=== PATIENT | male | born 1950 | race Caucasian/White ===

== ENCOUNTER 2021-04-10 15:27 | Emergency (ER) | payer MEDICARE, OTHER, SELFPAY ==
[2021-04-10 15:35] VITALS: BP 130/80; PULSE 78; RESP 16; TEMP 37.3; O2SAT 97
[2021-04-10 15:57] LABS: Add Manual Diff / Slide Review NO; Basophils Absolute Auto 100 /uL (0-100); Basophils Percent Auto 0.9 % (0-2); Eosinophils Absolute Auto 100 /uL (0-450); Eosinophils Percent Auto 2.1 % (2-4); Hematocrit 44.9 % (41-53); Hemoglobin 14.9 g/dL (13.5-17.5); Lymphocytes Absolute Auto 2400 /uL (1100-4500); Lymphocytes Percent Auto 40.1 % (25-40); Mean Corpuscular HGB Conc 33.3 % (30-36); Mean Corpuscular Hemoglobin 30.3 PG (26-34); Monocytes Absolute Auto 400 /uL (0-900); Monocytes Percent Auto 6.6 % (3-14); Neutrophils Absolute Auto 3000 /uL (1500-7000); Neutrophils Percent Auto 50.3 % (50-75); Platelet Count 274 X10^3/uL (150-400); Red Blood Cell Count 4.94 X10^6/uL (4.5-5.9); Red Cell Distribution Width 13.3 % (11.6-14.8); White Blood Cell Count 5.9 X10^3/uL (4.5-11.0)
[2021-04-10 16:04] LABS: Alanine Aminotransferase 36 IU/L (<50); Albumin 4.5 g/dL (3.5-5.0); Albumin Globulin Ratio 1.5 (1.0-2.8); Alkaline Phosphatase 66 U/L (38-126); Aspartate Aminotransferase 50 IU/L (17-59); BUN Creatinine Ratio 18.2 (6-22); Bilirubin Total 0.4 mg/dL (0.2-1.3); Blood Urea Nitrogen 14 mg/dL (9-20); Carbon Dioxide 26 mmol/L (22-32); Chloride 105 mmol/L (98-107); Estimated Glomerular Filt Rate > 60.0 mL/min (>60); Glucose 93 mg/dL (80-110); HEMOLYSIS < 15 (0-50); Lipase 34 U/L (23-300); Potassium 3.9 mmol/L (3.4-5.1); Sodium 140 mmol/L (137-145); Total Protein 7.5 g/dL (6.3-8.2)
[2021-04-10 19:38] VITALS: BP 154/89; PULSE 80; RESP 16; O2SAT 99
--- NOTE | 2021-04-10 20:10 | DI.CT.S_ITS ---
PROCEDURE: CT ABDOMEN PELVIS W CON INDICATIONS: Left side anterior abdominal pain, h/o bladder CA TECHNIQUE: After the administration of intravenous contrast, axial sections acquired from the lung bases to the pubic symphysis. Coronal and sagittal reformats were performed. For radiation dose reduction, the following was used: automated exposure control, adjustment of mA and/or kV according to patient size. COMPARISON: None. FINDINGS: Image quality: Excellent. Lung bases: Unremarkable. Heart: No significant findings. ABDOMEN: Liver: Unremarkable. There are several scattered simple appearing water density hepatic cysts. These are small in size. Gallbladder: Appears normal Biliary ducts: Unremarkable. Pancreas: Unremarkable. Spleen: Unremarkable. Adrenal Glands: Unremarkable. Kidneys and Ureters: Unremarkable. Stomach and Bowel: Stomach, small bowel loops, and colon are unremarkable. Peritoneum: No abnormal intraperitoneal fluid. No free air. Ventral Wall: No hernias. Abdominal Nodes: No retroperitoneal or mesenteric adenopathy by size criteria. Vessels: Aorta and inferior vena cava are normal in size. PELVIS: Pelvic Organs: Unremarkable. Bladder: Unremarkable. Pelvic Nodes: No enlarged lymph nodes. Miscellaneous: No hernias are seen. Extensive sigmoid diverticulosis without acute diverticulitis. Bones: Unremarkable. IMPRESSION: No bladder mass is seen. No adenopathy is found. No distant metastatic disease is identified. Scattered small water density simple appearing hepatic cysts. Extensive diverticulosis without acute diverticulitis. History of left side anterior abdominal pain is reported but etiology is not found. Dictated by: Winston Rosales M.D. on 04/10/2021 at 20:54 Approved by: Winston Rosales M.D. on 04/10/2021 at 20:57
--- NOTE | 2021-04-10 20:11 | ED.ABDPAIN ---
HPI - Abdominal Pain General Chief Complaint: Abdominal Pain Stated Complaint: lt sided abd pain, off and on Time Seen by Provider: 04/10/21 19:38 Source: patient Mode of arrival: Ambulatory History of Present Illness HPI narrative: 70-year-old gentleman with a history of bladder cancer 10 years ago visiting from [place] and living on his boat for the last 6 weeks here in [place] presents with left-sided abdominal pain. Notes that it hurts only when he sits and twists. Laying flat and walking are not particularly tender. It does not radiate into his flank groin or scrotum. He notes no change to bowel or bladder habits. He has had no hematuria. He reports no chest pain, orthopnea, dyspnea, palpitations, cough, fevers, vomiting or diarrhea. Review of Systems Review of Systems Narrative: Remainder of complete review of systems is otherwise unremarkable except for that included in the HPI. Patient History Medical History Bladder cancer Social History Smoking Status: Never smoker Smoking Status: Never smoker Exam Narrative Exam Narrative: General: Healthy appearing, in no acute distress. Able to give a complete and coherent history. Well-nourished well-developed HEENT: Moist mucous membranes, normal sclera with reactive pupils, Respiratory: Lungs are clear to auscultation, no wheezing no rales no rhonchi. Full and symmetrical air movement Cardiac: Regular rate and rhythm no murmurs no bruits Abdomen: Soft, nontender, good bowel tones, no flank pain. With rotational movement he has tenderness just lateral to the umbilicus on the left with no palpable defects or abnormalities externally : Normal in circumcised male no inguinal hernias or testicular pain or masses Skin: Warm and dry, no rashes Neurologic: Grossly neurologically intact with no obvious asymmetries or abnormalities Extremities: No trauma, well perfused Psych: Cooperative, appropriate insight and affect Initial Vital Signs Initial Vital Signs: Vital Signs Temperature 99.1 F 04/10/21 15:35 Pulse Rate 78 04/10/21 15:35 Respiratory Rate 16 04/10/21 15:35 Blood Pressure 130/80 04/10/21 15:35 Pulse Oximetry 97 08/17/21 15:35 Course Orders Ordered: ED Orders 04/10/21 15:15 Complete Blood Count AUTO DIFF Stat Comprehensive Metabolic Panel Stat Lipase Stat 04/10/21 20:10 CT abdomen pelvis w con Stat Vital Signs Vital signs: Vital Signs - 8 hr 04/10/21 15:35 Temperature 99.1 F Pulse Rate 78 Respiratory Rate 16 Blood Pressure 130/80 Pulse Oximetry 97 MDM - Abdominal Pain Lab Data Result diagrams: 04/10/21 15:15 04/10/21 15:15 Labs: Lab Results 04/10/21 04/10/21 Range/Units 15:15 15:15 WBC 5.9 (4.5-11.0) X10^3/uL RBC 4.94 (4.5-5.9) X10^6/uL Hgb 14.9 (13.5-17.5) g/dL Hct 44.9 (41-53) % MCV 91.0 (80-100) fL MCH 30.3 (26-34) PG MCHC 33.3 (30-36) % RDW 13.3 (11.6-14.8) % Plt Count 274 (150-400) X10^3/uL Neut % (Auto) 50.3 (50-75) % Lymph % (Auto) 40.1 H (25-40) % [place] % (Auto) 6.6 (3-14) % Eos % (Auto) 2.1 (2-4) % Baso % (Auto) 0.9 (0-2) % Neut # (Auto) 3000 (0705-9365) /uL Lymph # (Auto) 2400 (8342-7266) /uL [place] # (Auto) 400 (0-900) /uL Eos # (Auto) 100 (0-450) /uL Baso # (Auto) 100 (0-100) /uL Sodium 140 (137-145) mmol/L Potassium 3.9 (3.4-5.1) mmol/L Chloride 105 (98-107) mmol/L Carbon Dioxide 26 (22-32) mmol/L BUN 14 (9-20) mg/dL Creatinine 0.77 (0.66-1.25) mg/dL Estimated GFR > 60.0 (>60) mL/min BUN/Creatinine Ratio 18.2 (6-22) Glucose 93 (80-110) mg/dL Calcium 10.0 (8.4-10.2) mg/dL Total Bilirubin 0.4 (0.2-1.3) mg/dL AST 50 (17-59) IU/L ALT 36 (<50) IU/L Alkaline Phosphatase 66 (38-126) U/L Total Protein 7.5 (6.3-8.2) g/dL Albumin 4.5 (3.5-5.0) g/dL Globulin 3.0 (1.7-4.1) g/dL Albumin/Globulin Ratio 1.5 (1.0-2.8) Lipase 34 (23-300) U/L Point of care testing: Urine Dip Bedside Urine Glucose Negative Bedside Urine Bilirubin - Negative Bedside Urine Ketone - Negative Urine Specific [place] 1.030 Bedside Urine Occult Blood - Negative Bedside Urine pH 6.0 Bedside Urine Protein - Negative Bedside Urine Urobilinogen - Negative Bedside Urine Nitrite - Negative Bedside Urine Leukocytes - Negative Esterase MDM Narrative Medical decision making narrative: 70-year-old gentleman with 6 weeks of left-sided abdominal wall pain with no significant findings on physical exam lab work or CT to suggest etiology. No evidence of infection, hernia, shingles, nerve entrapment, masses, abscess, intra-abdominal wall abnormalities or other life-threatening findings. Reassurance is given and patient is safe for home discharge Discharge Plan Departure Patient Disposition: Home Clinical Impression: Abdominal wall pain Instructions: DI for Abdominal Muscle Strain Activity Restrictions/Additional Instructions: Thank you for coming in today I do not have a full explanation for why your having this continued pain on the left side of your abdomen. There does not appear to be any skin infection, hernia palpable on the outside either around her belly button, in the abdominal wall or the inguinal area. There is no suggestion of infection on CT scan. There is no concerns for recurrent bladder cancers or other intra-abdominal complications Your blood work today was very reassuring there is no sign of kidney issues kidney stones or kidney or bladder infection The most likely explanation at this point is some type of musculoskeletal pain. There is no evidence of any life-threatening diagnosis. Using 400 mg of ibuprofen (2 [id number] pills) and 1 Tylenol every 6 hours can be very helpful in controlling pain. If the pain persists I would recommend following up with your primary care physician I wish you the best
[2021-04-10 21:52] VITALS: BP 126/64; PULSE 67; RESP 18; O2SAT 97
== END 2021-04-10 21:53 | disposition home or self-care (01) ==
PROVIDERS: Emergency Medicine; Emergency Provider Emergency Medicine
DX: R10.9 Unspecified abdominal pain (principal)
CPT/HCPCS: 74177; 80053; 81003; 83690; 85025; 99283; 99284

== ENCOUNTER 2021-05-27 11:36 | Emergency (ER) | payer MEDICARE, OTHER, SELFPAY ==
[2021-05-27 11:44] VITALS: BP 121/68; PULSE 78; RESP 18; TEMP 36.2; O2SAT 98; BMI 31.6
[2021-05-27 12:15] LABS: COVID19 -Nasal RAPID Negative (Negative)
--- NOTE | 2021-05-28 07:52 | ED_ITS ---
HPI - Recheck/Abnormal Lab/Rx General Chief Complaint: Recheck/Abnormal Lab/Rx Stated Complaint: Needs COVID, Exposure Time Seen by Provider: 05/27/21 13:09 Source: patient Mode of arrival: Ambulatory Limitations: no limitations History of Present Illness HPI narrative: Patient is a 70-year-old male is wanting COVID test. He was exposed 4 days ago he is asymptomatic Related Data Allergies Allergy/AdvReac Type Severity Reaction Status Date / Time No Known Drug Allergies Allergy Verified 05/27/21 11:44 Review of Systems Review of Systems ROS Unobtainable: All systems reviewed & are unremarkable except as noted in HPI and below Patient History Medical History Bladder cancer Social History Smoking Status: Never smoker Smoking Status: Never smoker Exam Initial Vital Signs Initial Vital Signs: Vital Signs Temperature 97.2 F L 05/27/21 11:44 Pulse Rate 78 05/27/21 11:44 Respiratory Rate 18 05/27/21 11:44 Blood Pressure 121/68 05/27/21 11:44 Pulse Oximetry 98 05/27/21 11:44 GENERAL: Well-appearing, well-nourished and in no acute distress. CARDIOVASCULAR: peripheral pulses in tact, cap refill <2 sec RESPIRATORY: No respiratory distress, speaks in full sentences without difficulty EXTREMITIES: Normal range of motion, no clubbing or edema. Neurovascularly intact NEUROLOGICAL: Cranial nerves II through XII grossly intact. Normal gait and speech. SKIN: Warm, dry, no petechiae, no rashes or lesions. MDM - Recheck/Abnormal Lab/Rx Lab Data Labs: Lab Results 05/27/21 Range/Units 11:43 SARS-CoV-2 (PCR) Negative (Negative) Discharge Plan Departure Patient Disposition: Home Clinical Impression: Close exposure to 2019-nCoV Instructions: COVID-19: Protecting Yourself When You're at High Risk Activity Restrictions/Additional Instructions: At this time he tested negative for COVID. Please continue to self monitor quarantine for 10 days since exposure If you should develop symptoms please be retested There are plenty of out patient testing sites including [facility] and other [facility] Follow-up with her primary care provider in 2-3 days Return to emergency department infusion having new or worsening symptoms
== END 2021-05-27 13:22 | disposition home or self-care (01) ==
PROVIDERS: Emergency Provider Emergency Medicine
DX: Z20.822 Contact with and (suspected) exposure to COVID-19 (principal)
CPT/HCPCS: 87635; 99281; C9803

== ENCOUNTER 2022-12-10 18:38 | Inpatient (IN) | payer MEDICARE, OTHER, SELFPAY ==
[2022-12-10] VITALS (11 sets, daily range): BP systolic 134–144; BP diastolic 70–79; PULSE 71–104; RESP 16–19; TEMP 36.6–36.7; O2SAT 94–100; BMI 31.6
--- NOTE | 2022-12-10 18:49 | DI.RAD.S_ITS ---
PROCEDURE: XR HIP W PEL IF DONE LT 2V INDICATIONS: fall, left hip pain, unable to bear weight TECHNIQUE: AP pelvis with lateral view(s) of the left hip(s). COMPARISON: None. FINDINGS: Bones: Moderately angulated left femoral neck fracture. Soft tissues: The visualized bowel gas pattern is normal. No suspicious soft tissue calcifications. IMPRESSION: Moderately angulated left femoral neck fracture. Dictated by: Yasmani Cullen M.D. on 12/10/2022 at 20:54 Approved by: Yasmani Cullen M.D. on 12/10/2022 at 20:55
[2022-12-10] MEDS: HYDROMORPHONE 0.5 MG INJ IV ×2 (19:25→20:29)
[2022-12-10 19:29] LABS: Add Manual Diff / Slide Review NO; Basophils Absolute Auto 100 /uL (0-100); Basophils Percent Auto 0.6 % (0-2); Eosinophils Absolute Auto 100 /uL (0-450); Eosinophils Percent Auto 1.7 % (2-4); Hematocrit 44.5 % (41-53); Lymphocytes Absolute Auto 3500 /uL (1100-4500); Lymphocytes Percent Auto 43.2 % (25-40); Mean Corpuscular HGB Conc 33.8 % (30-36); Mean Corpuscular Hemoglobin 30.2 PG (26-34); Mean Corpuscular Volume 89.5 fL (80-100); Monocytes Absolute Auto 500 /uL (0-900); Monocytes Percent Auto 5.8 % (3-14); Neutrophils Absolute Auto 3900 /uL (1500-7000); Neutrophils Percent Auto 48.7 % (50-75); Platelet Count 255 X10^3/uL (150-400); Red Blood Cell Count 4.97 X10^6/uL (4.5-5.9)
--- NOTE | 2022-12-10 19:29 | ED.LOWEXIN ---
HPI - Extremity Injury (Lower) General Chief Complaint: Extremity Injury, Lower Stated Complaint: Hip pain, fall Time Seen by Provider: 12/10/22 19:01 History of Present Illness HPI Narrative: Patient is a 72-year-old healthy male who presents today with left hip pain. He is here visiting to help his mother who is getting a pacemaker in 1 week. He slipped and fell in the parking lot landed directly on his left hip unable to stand and bear weight. Denies hitting his head no neck pain no chest pain shortness of breath no dizziness or lightheadedness. He denies numbness tingling. Significant pain whenever he moves however at rest without movement he has no pain. Related Data Allergies Allergy/AdvReac Type Severity Reaction Status Date / Time No Known Drug Allergies Allergy Verified 12/10/22 18:48 Review of Systems Review of Systems ROS Unobtainable: All systems reviewed & are unremarkable except as noted in HPI and below Patient History Medical History Bladder cancer Social History household members: spouse Smoking Status: Never smoker alcohol intake: current Smoking Status: Never smoker Substance Use Type: does not use Exam Initial Vital Signs Initial Vital Signs: Vital Signs Blood Pressure 138/70 12/10/22 18:45 GENERAL: Alert very pleasant 72-year-old male and in [no acute] distress. HEENT: Head atraumatic,EOMI, pupils reactive, face symmetric, [moist] mucous membranes CARDIOVASCULAR: Regular rate and rhythm without murmurs, rubs or gallops. RESPIRATORY: Breath sounds equal bilaterally, no wheezes rales or rhonchi. ABDOMEN: Soft, nontender. Normoactive bowel sounds all 4 quadrants. No guarding or rebound. EXTREMITIES: Normal range of motion, no clubbing or edema. Neurovascularly intact NEUROLOGICAL: Alert and oriented x4.Normal gait and speech. SKIN: Warm, dry, no laceration, no petechiae, no rashes or lesions. Course Orders Ordered: ED Orders 12/10/22 21:10 COVID19 -Nasal RAPID Stat 12/10/22 21:22 Consult to Physician Stat Acetaminophen (Acetaminophen 325 Mg Tablet) 650 mg PO Q6H PRN PRN Reason: Fever/Mild Pain (1-3) Enoxaparin Sodium (Enoxaparin 40 Mg/0.4 Ml Syringe) 40 mg SUBCUT DAILY JUSTO Hydromorphone HCl (Hydromorphone 0.5 Mg Inj) 0.5 mg IV Q2H PRN PRN Reason: Pain, Severe (7-10) Last Admin: 12/11/22 01:54 Dose: 0.5 mg Documented By: Naloxone HCl (Naloxone 0.4 Mg/Ml Vial) 0.2 mg IV Q2MIN PRN PRN Reason: Opiate Reversal Discontinued Medications Hydromorphone HCl (Hydromorphone 0.5 Mg Inj) 0.5 mg IV NOW ONE Stop: 12/10/22 19:09 Last Admin: 12/10/22 19:25 Dose: 0.5 mg Documented By: YADIRA Hydromorphone HCl (Hydromorphone 0.5 Mg Inj) 0.5 mg IV NOW ONE Stop: 12/10/22 20:27 Last Admin: 12/10/22 20:29 Dose: 0.5 mg Documented By: LAYU Vital Signs Vital signs: Vital Signs - 8 hr 12/10/22 18:46 Temperature 97.8 F Pulse Rate 78 Respiratory Rate 16 Blood Pressure 138/70 Pulse Oximetry 99 Oxygen Delivery Method Room Air MDM - Extremity Injury (Lower) Lab Data 12/10/22 19:25 12/11/22 04:40 Labs: Lab Results 12/10/22 12/10/22 12/10/22 Range/Units 19:25 19:25 21:10 WBC 8.0 (4.5-11.0) X10^3/uL RBC 4.97 (4.5-5.9) X10^6/uL Hgb 15.0 (13.5-17.5) g/dL Hct 44.5 (41-53) % MCV 89.5 (80-100) fL MCH 30.2 (26-34) PG MCHC 33.8 (30-36) % RDW 14.0 (11.6-14.8) % Plt Count 255 (150-400) X10^3/uL Neut % (Auto) 48.7 L (50-75) % Lymph % (Auto) 43.2 H (25-40) % [place] % (Auto) 5.8 (3-14) % Eos % (Auto) 1.7 L (2-4) % Baso % (Auto) 0.6 (0-2) % Neut # (Auto) 3900 (6955-5958) /uL Lymph # (Auto) 3500 (6461-3551) /uL [place] # (Auto) 500 (0-900) /uL Eos # (Auto) 100 (0-450) /uL Baso # (Auto) 100 (0-100) /uL Sodium 140 (137-145) mmol/L Potassium 3.6 (3.4-5.1) mmol/L Chloride 103 (98-107) mmol/L Carbon Dioxide 28 (22-32) mmol/L BUN 12 (9-20) mg/dL Creatinine 0.74 (0.66-1.25) mg/dL Estimated GFR > 60 (>60) mL/min BUN/Creatinine Ratio 16.2 (6-22) Glucose 100 (80-110) mg/dL Calcium 9.1 (8.4-10.2) mg/dL Total Bilirubin 0.3 (0.2-1.3) mg/dL AST 29 (17-59) IU/L ALT 23 (<50) IU/L Alkaline Phosphatase 68 (38-126) U/L Total Protein 7.5 (6.3-8.2) g/dL Albumin 4.3 (3.5-5.0) g/dL Globulin 3.2 (1.7-4.1) g/dL Albumin/Globulin Ratio 1.3 (1.0-2.8) SARS-CoV-2 (PCR) Negative (Negative) Imaging Data Extremity x-ray #1: Radiologist's Impression: PROCEDURE:? XR HIP W PEL IF DONE LT 2V ? INDICATIONS:? fall, left hip pain, unable to bear weight ? TECHNIQUE:? AP pelvis with lateral view(s) of the left hip(s).? ? COMPARISON:? None. ? FINDINGS:? ? Bones:? Moderately angulated left femoral neck fracture. ? Soft tissues:? The visualized bowel gas pattern is normal.? No suspicious soft tissue calcifications.? ? ? IMPRESSION:? Moderately angulated left femoral neck fracture. ? Dictated by: Yasmani Cullen M.D. on 12/10/2022 at 20:54 ? ? MDM Narrative Medical decision making narrative: Patient is 72-year-old male who had a mechanical fall landing on his left hip. Found to have a left femoral neck fracture. He is otherwise healthy who medical issues. No head injury. Blood work is overall reassuring. Dr. Salvador has been consulted. Dr. Noriega accepts patient Discharge Plan Departure Patient Disposition: Admitted As Inpatient Clinical Impression: Closed left hip fracture Admit Date/Time: 12/10/22 21:22 Admit Provider: Michael Noriega
[2022-12-10 19:52] LABS: Alanine Aminotransferase 23 IU/L (<50); Albumin 4.3 g/dL (3.5-5.0); Albumin Globulin Ratio 1.3 (1.0-2.8); Alkaline Phosphatase 68 U/L (38-126); Aspartate Aminotransferase 29 IU/L (17-59); BUN Creatinine Ratio 16.2 (6-22); Bilirubin Total 0.3 mg/dL (0.2-1.3); Blood Urea Nitrogen 12 mg/dL (9-20); Calcium 9.1 mg/dL (8.4-10.2); Carbon Dioxide 28 mmol/L (22-32); Chloride 103 mmol/L (98-107); Estimated Glomerular Filt Rate > 60 mL/min (>60); Globulin 3.2 g/dL (1.7-4.1); Glucose 100 mg/dL (80-110); HEMOLYSIS < 15 (0-50); Potassium 3.6 mmol/L (3.4-5.1); Sodium 140 mmol/L (137-145); Total Protein 7.5 g/dL (6.3-8.2)
--- NOTE | 2022-12-10 21:43 | PM.HP.1 ---
History of Present Illness History of Present Illness Date Patient Seen: 12/10/22 Time Patient Seen: 22:00 Chief complaint: Hip pain, fall Narrative: Mr. Simeon is a 72M with H bladder cancer s/p TURP, GERD who presents after a fall. He is in town visiting his mother. He was walking in a parking lot and tripped and fell on his back left side. He had immediate pain and was unable to walk. He had no symptoms of dizziness, or lightheadedness prior. He did not hit his head or lose consciousness. In the ED workup was done, vitals afebrile, heart rate 70s, respiratory rate 16, blood pressure 130s/70s, sats 99% on room air. Labs reviewed by me and notable for WBC 8.0, hgb 15.0, plts 255. Na 140, k 3.6, creatinine 0.74. Hip xray reviewed by me and shows left femoral neck fracture. He was ordered for pain medications and felt improved. Orthopedic surgery consulted. He was admitted for further treatment. [facility] Medical History Bladder cancer Social History Smoking Status: Never smoker Meds Home Medications and Allergies Allergies Allergy/AdvReac Type Severity Reaction Status Date / Time No Known Drug Allergies Allergy Verified 12/10/22 18:48 Review of Systems Review of Systems Narrative: 14 systems reviewed and negative aside from what is noted in HPI Exam Vital Signs (past 8 hours): - 12/10/22 18:46 12/10/22 18:45 12/10/22 18:46 Temperature 97.8 F Pulse Rate 78 83 Respiratory Rate 16 Blood Pressure 138/70 138/70 Pulse Oximetry 99 98 Oxygen Delivery Method Room Air 12/10/22 19:00 12/10/22 19:00 12/10/22 19:30 Temperature Pulse Rate 75 79 Respiratory Rate Blood Pressure 140/72 Pulse Oximetry 99 99 Oxygen Delivery Method 12/10/22 20:00 Temperature Pulse Rate 73 Respiratory Rate Blood Pressure Pulse Oximetry 100 Oxygen Delivery Method Oxygen Delivery Method Room Air Narrative Exam Narrative: GEN: no acute distress HEENT: moist mucuos membranes, PERRL NECK: trachea midline, no JVD PULM: clear bilaterally, no wheezes, rhonchi, rales CV: regular rate and rhythm, no murmurs ABD: soft, nontender, nondistended, no organomegaly, normal bowel sounds EXT: warm and well perfused, no edema NEURO: awake, alert, oriented, no focal deficits Objective Labs 12/10/22 19:25 12/10/22 19:25 Labs: Laboratory Results - last 24 hr 12/10/22 12/10/22 19:25 19:25 WBC 8.0 RBC 4.97 Hgb 15.0 Hct 44.5 MCV 89.5 MCH 30.2 MCHC 33.8 RDW 14.0 Plt Count 255 Neut % (Auto) 48.7 L Lymph % (Auto) 43.2 H [place] % (Auto) 5.8 Eos % (Auto) 1.7 L Baso % (Auto) 0.6 Neut # (Auto) 3900 Lymph # (Auto) 3500 [place] # (Auto) 500 Eos # (Auto) 100 Baso # (Auto) 100 Sodium 140 Potassium 3.6 Chloride 103 Carbon Dioxide 28 BUN 12 Creatinine 0.74 Estimated GFR > 60 BUN/Creatinine Ratio 16.2 Glucose 100 Calcium 9.1 Total Bilirubin 0.3 AST 29 ALT 23 Alkaline Phosphatase 68 Total Protein 7.5 Albumin 4.3 Globulin 3.2 Albumin/Globulin Ratio 1.3 Assessment & Plan Assessment & Plan narrative: 1. Acute left hip fracture -occurred after mechanical trip and fall -imaging confirms left femoral neck fracture -ordered for pain control -NPO after midnight -orthopedic surgery consulted to evaluate for surgical repair 2. History of bladder cancer -no current symptoms 3. GERD -continue nexium I have discussed plan and obtained history from patient and his mother corroborates. I have discussed plan of care with ED physician and bedside nurse. I have reviewed labs, and imaging. CODE: Full Proxy: Citlaly Simeon, Quality [facility] - Meds 'Current medications' to include all prescriptions, [id number] products, herbals, cannabis/cannabidiol products, and vitamin/mineral/dietary (nutritional) supplements. I have utilized all available resources to obtain, update, or review the patient?s current medications. [If Yes, STOP here]: Yes
[2022-12-10 21:47] LABS: COVID19 -Nasal RAPID Negative (Negative)
[2022-12-11] VITALS (15 sets, daily range): BP systolic 98–144; BP diastolic 51–94; PULSE 58–121; RESP 12–19; TEMP 36.2–37.6; O2SAT 91–98; BMI 31.6
[2022-12-11] MEDS: HYDROMORPHONE 0.5 MG INJ IV ×3 (01:54→11:55)
[2022-12-11 05:05] LABS: BUN Creatinine Ratio 23.2 (6-22); Blood Urea Nitrogen 13 mg/dL (9-20); Calcium 8.6 mg/dL (8.4-10.2); Carbon Dioxide 26 mmol/L (22-32); Chloride 103 mmol/L (98-107); Estimated Glomerular Filt Rate > 60 mL/min (>60); Glucose 113 mg/dL (80-110); HEMOLYSIS < 15 (0-50); Potassium 3.9 mmol/L (3.4-5.1); Sodium 135 mmol/L (137-145)
[2022-12-11 05:14] LABS: NT-proBNP (BNP-Adult 18+) 56 pg/mL (<125)
--- NOTE | 2022-12-11 07:44 | PM.CN ---
History of Present Illness Consult details Date Patient Seen: 12/11/22 Time Patient Seen: 07:44 Chief complaint: Hip pain, fall Reason for consult: Left femoral neck fracture Requesting provider: Patsy Garrett Narrative: Mr. Simeon is a pleasant 72-year-old gentleman who was visiting from [place] to check on his boat in [place]. He got off the airport shuttle, tripped over his luggage and fell, injuring his left hip. He was unable to rise. The cab that he had arranged to take him to his hotel took him to the hospital instead. Evaluation in the emergency room revealed a displaced femoral neck fracture. Meds Home Medications and Allergies Allergies Allergy/AdvReac Type Severity Reaction Status Date / Time No Known Drug Allergies Allergy Verified 12/10/22 18:48 Review of Systems Review of Systems Narrative: He reports that he was in his normal state of health with no significant medical problems prior to his fall. Exam Vital Signs (past 8 hours): - 12/11/22 04:00 Temperature 98.3 F Pulse Rate 86 Respiratory Rate 17 Blood Pressure 104/51 L Pulse Oximetry 95 Oxygen Delivery Method Room Air Narrative Exam Narrative: The patient is examined lying comfortably in bed. His left leg is shortened and externally rotated. He has mild peripheral edema. He has 2+ dorsalis pedis and posterior tibial pulses. He has intact light touch and motion in the left foot. Objective Labs 12/10/22 19:25 12/11/22 04:40 Labs: Laboratory Results - last 24 hr 12/10/22 12/10/22 12/10/22 19:25 19:25 21:10 WBC 8.0 RBC 4.97 Hgb 15.0 Hct 44.5 MCV 89.5 MCH 30.2 MCHC 33.8 RDW 14.0 Plt Count 255 Neut % (Auto) 48.7 L Lymph % (Auto) 43.2 H [place] % (Auto) 5.8 Eos % (Auto) 1.7 L Baso % (Auto) 0.6 Neut # (Auto) 3900 Lymph # (Auto) 3500 [place] # (Auto) 500 Eos # (Auto) 100 Baso # (Auto) 100 Sodium 140 Potassium 3.6 Chloride 103 Carbon Dioxide 28 BUN 12 Creatinine 0.74 Estimated GFR > 60 BUN/Creatinine Ratio 16.2 Glucose 100 Calcium 9.1 Total Bilirubin 0.3 AST 29 ALT 23 Alkaline Phosphatase 68 NT-Pro-B Natriuret Pep Total Protein 7.5 Albumin 4.3 Globulin 3.2 Albumin/Globulin Ratio 1.3 SARS-CoV-2 (PCR) Negative 12/11/22 04:40 WBC RBC Hgb Hct MCV MCH MCHC RDW Plt Count Neut % (Auto) Lymph % (Auto) [place] % (Auto) Eos % (Auto) Baso % (Auto) Neut # (Auto) Lymph # (Auto) [place] # (Auto) Eos # (Auto) Baso # (Auto) Sodium 135 L Potassium 3.9 Chloride 103 Carbon Dioxide 26 BUN 13 Creatinine 0.56 L Estimated GFR > 60 BUN/Creatinine Ratio 23.2 H Glucose 113 H Calcium 8.6 Total Bilirubin AST ALT Alkaline Phosphatase NT-Pro-B Natriuret Pep 56 Total Protein Albumin Globulin Albumin/Globulin Ratio SARS-CoV-2 (PCR) Radiographs reveal a displaced left femoral neck fracture. [facility] Medical History Bladder cancer Social History household members: spouse Tobacco & Substance Use Smoking Status: Never smoker alcohol intake: current Assessment & Plan Assessment & Plan narrative: Closed, displaced, left femoral neck fracture. We have discussed the risks benefits and alternatives to left hip hemiarthroplasty. Patient is aware of the complication possibilities and agrees to proceed. Risks discussed included but were not limited to: Failure to improve pain or function, leg length discrepancy, dislocation, possible need for future revision to total hip replacement, infection, nerve damage, bleeding requiring transfusion, deep venous thrombosis, pulmonary embolism, stroke, myocardial infarction, permanent paralysis and . He has been NPO since his arrival at the hospital yesterday. We will add him to the surgery schedule later today for a left hip hemiarthroplasty. COVID-19 COVID-19 status: Result pending
[2022-12-11] MEDS: LACTATED RINGERS 1,000 ML 100 ML IV ×3 (09:05→16:45)
[2022-12-11] MEDS: CEFAZOLIN 2 GM/100 ML PREMIX 100 ML IV ×2 (13:45→21:27)
[2022-12-11] MEDS: TRANEXAMIC ACID 1,000 MG in SODIUM CHLORIDE 0.9% 100 ML 200 MG IV ×2 (13:45→15:10)
--- NOTE | 2022-12-11 14:14 | SUR.OPER ---
Lateral on padded OR bed. Gel axillary roll. Arms secured on padded armboard with pillow supporting top arm. Padded hip positioner braces x4 - anterior and posterior chest and pelvis. Additional gel pad used anterior pelvis. Gel pad under bottom leg from knee to foot and secured with tape over sheet.
[2022-12-11] MEDS: BUPIVACAINE 0.5% (PF) 30 ML, EPINEPHrine 0.15 MG INJ (14:23)
--- NOTE | 2022-12-11 14:50 | CM.DANOTE ---
Addendum entered by ANGEL Rosales 12/12/22 11:32: ADD: Discharge likely home today, cleared by therapy for this plan. Awaiting medical clearance. No needs from CM team CAYDEN Original Note: Initial DCP Assessment Note Dr Salvador Consult Note: Mr. Simeon is a pleasant 72-year-old gentleman who visiting from [place] to check on his boat in [place]. He got off the airport shuttle, tripped over his luggage and fell, injuring his left hip. He was unable to rise. The cab that he had arranged to take him to his hotel took him to the hospital instead. Evaluation in the emergency room revealed a displaced femoral neck fracture. PCP: Out of State Payer: [facility]/Commercial Reviewed chart, pt off the floor for his hip repair Will plan to continue assessment of need s/p surgery and PT/OT ANGEL Almeida Discharge Planning/Care Management CM Discharge Assessment Start: 12/11/22 14:44 Freq: Status: Active Protocol: Document 12/11/22 14:44 CAYDEN (Rec: 12/11/22 14:50 CAYDEN [id number]) Discharge Planning Assessment Assigned Retrimmer ANGEL Schwab DPOA/Assigned Designee Name Citlaly Simeon, spouse Contact Information [phone] Advance Directives? Yes Advance Directives on File No History Provided By Patient,Medical Record Prior Living Arrangements House Household Members spouse Type of transporation used prior to Drives own vehicle admit Independent with ADL's Yes Is patient alert and oriented? Yes Comment TBD. Patient is a healthy and active 72 yo male, off the floor this afternoon for hip repair after fall and subsequent hip fx. May be able to discharge home to hotel vs friend or family house (?) Following closely for continued assessment of need s /p hip repair. PT/OT alek will be helpful for dispo recs JW Transportation Arrangement TBD Additional Comment Following closely
--- NOTE | 2022-12-11 15:10 | DI.RAD.S_ITS ---
PROCEDURE: XR PELVIS 1-2V INDICATIONS: LEFT HEMIARTHROPLASTY HIP TECHNIQUE: Intra-operative view of the pelvis and hip acquired. COMPARISON: None. FINDINGS: Bones: Intraoperative devices prior to placement of arthroplasty prostheses are in expected positions. No fractures or suspicious bony lesions. Soft tissues: Overlying surgical retractors are present, along with other intraoperative changes. IMPRESSION: Expected position of the left total hip arthroplasty. Dictated by: Rolando King M.D. on 12/11/2022 at 17:28 Approved by: Rolando King M.D. on 12/11/2022 at 17:28
--- NOTE | 2022-12-11 15:51 | P.OP_ITS ---
Operative Date/Time/Diagnoses Date of procedure: 12/11/22 Time of procedure: 15:51 Pre-op diagnosis: Left femoral neck fracture (closed, displaced) Post-op diagnosis: same Procedure & Clinicians Procedure: Left hip hemiarthroplasty Same procedure as scheduled: Yes Indications: The patient is a 72-year-old gentleman who fell last evening sustaining a left femoral neck fracture. He is agreed to femoral hemiarthroplasty after discussion the risks benefits and alternatives as documented in my consultation note. Surgeon: Carlos Salvador Substation Operator Automatic: Reina Garner Click Yes if Unassisted: No Anesthesia Type: General and Local Operative Notes Findings: Displaced comminuted femoral neck fracture on the left. Closure Type: primary Specimen(s): none sent Prosthetic devices, grafts, tissues, transplants, or devices: Implants used in this procedure were manufactured by the [employer] and included a size 13 high offset Synergy cemented femoral stem with an 11 mm distal cement centralizer, a +0 Tandem unipolar taper sleeve and a 52 mm Tandem unipolar femoral head. Applied: implant(s) Estimated Blood Loss (mL): 500 Blood products transfused: none Procedure in detail: The patient was seen in the pre-operative area, where they identified the left hip as the operative site and this was marked with my initials. The patient received pre-operative antibiotics and was taken to the operating room and placed on the operative table in the right lateral decubitus position after satisfactory anesthesia. A time checker out was performed. The left leg was prepared from the ankle to the iliac crest with ChloroPrep in the usual fashion and draped through sterile drapes. The hip was approached through an approximately 15 cm incision centered over the greater trochanter and curving gently posteriorly as it went proximally. This was carried sharply to the fascia chandrika, which was divided and retracted with a self-retaining retractor. The trochanteric bursa was excised with care being taken to avoid the sciatic nerve, which was identified and protected throughout the case. The short external rotators were incised and the capsulomuscular flap was raised and tagged for later repair. The femoral head was removed with a ?corkscrew?, and the femoral neck osteotomy performed approximately 15 mm above the lesser trochanter. Retractors were placed to expose the acetabulum and a trial femoral head placed to confirm the size of the ball. We then turned our attention to the femur. The canal was opened with a box cutting osteotome, followed by a T handled reamer and a lateralizing reamer. Tapered reamers were used for the canal up to a size 13. The broaches were used, sequentially enlarging until a good fit was obtained. A trial head and n alessandro were then placed and the hip relocated and checked for leg length and stability. The patient was stable in the position of sleep, of squatting, and could be put through a range of motion with 45 degrees internal rotation without dislocation. At 90 degrees flexion, internal rotation to 70 degrees was possible before dislocation. This was felt to be satisfactory and the appropriate components were opened, and the trials were removed. The canal was prepared by placing a distal cement plug. The pulsatile lavage was used followed by an epinephrine-soaked sponge for hemostasis. Cement was then retrograde injected and pressurized. The final stem was then impacted into the prepared femoral canal. Finally the femoral head was impacted onto the stem. The acetabulum was cleared of all material and the hip relocated one final time. Radiographs were obtained intra-operatively confirming the position of all components and confirming that there were no iatrogenic fractures. The capsulomuscular flap was then repaired to the greater trochanter though an awl hole using the tag sutures. The fascia chandrika was closed with running and interrupted 0 Vicryl. The subcutaneous layer was closed with interrupted 3-0 Vicryl, and the skin with a running 3-0 V-Lock suture and Dermabond. An Aquacel Ag dressing was applied and the patient was taken to recovery having tolerated the procedure well. The assistance of a skilled surgical processor was required during this procedure to provide positioning, exposure and retraction to protect vital structures. Without the services of Ms. Garner the procedure would not have proceeded in a safe, expedient fashion. Complications: none Post-operative Condition: stable Disposition: PACU Plan for aftercare: The patient will be maintained on posterior hip precautions for 6 weeks. He will be started on physical therapy tomorrow morning. He will be discharged once he is safe for his home environment. He plans to travel home to [place] as soon as he can and will need to be able to board and exit an airplane.
--- NOTE | 2022-12-11 16:10 | SUR.PHASEI ---
Dr. Lozano, anesthesia on this case, called regarding heart rhythm. Patient is in bigemeny in PACU, c/o no chest pain or palpitations. Dr. Lozano notified, no new orders given. Fransico Erm
--- NOTE | 2022-12-11 17:39 | P.PN_ITS ---
Subjective Subjective Interval history: 72 M admitted with a hip fracture, seen after OR today. Doing well, no co mplaints of pain currently, able to move his extremity and he feels great. Denies chest pain, dyspnea, nausea, vomiting. He has not had a bowel movement in a few days, would like to get up as soon as possible. Exam Vital Signs (past 8 hours): - 12/11/22 13:08 12/11/22 15:43 12/11/22 15:47 Temperature 99.0 F 97.2 F L Pulse Rate 96 H 121 H 102 H Respiratory Rate 18 19 14 Blood Pressure 135/85 144/59 H 143/91 H Pulse Oximetry 97 97 94 Oxygen Delivery Method Room Air Room Air Room Air 12/11/22 16:13 12/11/22 15:52 12/11/22 15:57 Temperature 99.6 F Pulse Rate 94 H 97 H 99 H Respiratory Rate 12 12 12 Blood Pressure 127/94 H 143/68 H 133/81 Pulse Oximetry 93 97 93 Oxygen Delivery Method Room Air Room Air Room Air Oxygen Delivery Method Room Air Oxygen Flow Rate 0 Narrative Exam Narrative: GEN: no acute distress EXT: warm and well perfused, no edema NEURO: awake, alert, oriented, no focal deficits Objective Labs 12/10/22 19:25 12/11/22 04:40 Labs: Laboratory Results - last 24 hr 12/10/22 12/10/22 12/10/22 19:25 19:25 21:10 WBC 8.0 RBC 4.97 Hgb 15.0 Hct 44.5 MCV 89.5 MCH 30.2 MCHC 33.8 RDW 14.0 Plt Count 255 Neut % (Auto) 48.7 L Lymph % (Auto) 43.2 H Caswell % (Auto) 5.8 Eos % (Auto) 1.7 L Baso % (Auto) 0.6 Neut # (Auto) 3900 Lymph # (Auto) 3500 Caswell # (Auto) 500 Eos # (Auto) 100 Baso # (Auto) 100 Sodium 140 Potassium 3.6 Chloride 103 Carbon Dioxide 28 BUN 12 Creatinine 0.74 Estimated GFR > 60 BUN/Creatinine Ratio 16.2 Glucose 100 Calcium 9.1 Total Bilirubin 0.3 AST 29 ALT 23 Alkaline Phosphatase 68 NT-Pro-B Natriuret Pep Total Protein 7.5 Albumin 4.3 Globulin 3.2 Albumin/Globulin Ratio 1.3 SARS-CoV-2 (PCR) Negative 12/11/22 04:40 WBC RBC Hgb Hct MCV MCH MCHC RDW Plt Count Neut % (Auto) Lymph % (Auto) Caswell % (Auto) Eos % (Auto) Baso % (Auto) Neut # (Auto) Lymph # (Auto) Caswell # (Auto) Eos # (Auto) Baso # (Auto) Sodium 135 L Potassium 3.9 Chloride 103 Carbon Dioxide 26 BUN 13 Creatinine 0.56 L Estimated GFR > 60 BUN/Creatinine Ratio 23.2 H Glucose 113 H Calcium 8.6 Total Bilirubin AST ALT Alkaline Phosphatase NT-Pro-B Natriuret Pep 56 Total Protein Albumin Globulin Albumin/Globulin Ratio SARS-CoV-2 (PCR) [facility] Medical History Bladder cancer Social History household members: spouse Smoking Status: Never smoker alcohol intake: current Assessment & Plan Assessment & Plan narrative: 1. Acute left hip fracture, pathologic secondary to osteoporosis given ground le marky fall. -now s/p L hemiarthoplasty with orthopedic surgery, appreciate management assistance. - continue pain control, PT / OT 2. History of bladder cancer -no current symptoms 3. GERD -continue nexium, patient to provide 4. HLD - continue home statin CODE: Full Proxy: Citlaly Simeon, DVT: ppx per orthopedics, asa 81 mg BID for 6 weeks. Dispo: He is doing remarkably well, may be able to discharge home tomorrow depending on PT/OT evaluations. Discussed pre-op with orthopedic surgeon. Update patient and family at bedside.
[2022-12-11] MEDS: SENNOSIDES 8.6 MG TABLET 17.2 MG PO (20:22)
[2022-12-11] MEDS: ASPIRIN EC 81 MG TABLET PO (20:22)
[2022-12-11] MEDS: OXYCODONE IR 10 MG TABLET PO (20:22)
[2022-12-11] MEDS: IBUPROFEN 400 MG TABLET PO (20:22)
[2022-12-11] MEDS: DOCUSATE 100 MG CAPSULE PO (20:22)
[2022-12-12 03:45] VITALS: BP 115/67; PULSE 86; RESP 18; TEMP 36.4; O2SAT 95
[2022-12-12] MEDS: PANTOPRAZOLE DR 40 MG TABLET PO (05:13)
[2022-12-12] MEDS: CEFAZOLIN 2 GM/100 ML PREMIX 100 ML IV (05:14)
[2022-12-12 05:36] LABS: Hematocrit 36.3 % (41-53); Hemoglobin 12.4 g/dL (13.5-17.5)
[2022-12-12 07:32] VITALS: O2SAT 97
--- NOTE | 2022-12-12 07:57 | P.PN_ITS ---
Subjective Subjective Date Patient Seen: 12/12/22 Time Patient Seen: 07:57 Interval history: patient is doing very well after his left hip hemiarthroplasty. He is maintaining posterior hip precautions which he looked up on you tube. He is not worked with physical therapy yet, but is overall feeling great and would like to be discharged today. His plan is to fly home to [place] soon as possible, likely next week. Exam Vital Signs (past 8 hours): - 12/12/22 03:45 12/12/22 07:32 Temperature 97.5 F L Pulse Rate 86 Respiratory Rate 18 Blood Pressure 115/67 Pulse Oximetry 95 97 Oxygen Delivery Method Room Air Oxygen Flow Rate 0 0 Oxygen Delivery Method Room Air Oxygen Flow Rate 0 Narrative Exam Narrative: Pleasant 72-year-old male, resting comfortably in bed, no acute distress. Left hip dressing is clean, dry, intact. No surrounding erythema, induration, or ezio pus. Bilateral lower extremity: Motor functions are grossly intact, sensation is grossly intact to light touch, calves are soft and nontender to palpation. Objective Labs 12/12/22 04:50 12/11/22 04:40 Labs: Laboratory Results - last 24 hr 12/12/22 04:50 Hgb 12.4 L Hct 36.3 L PFSH Medical History Bladder cancer Social History household members: spouse Smoking Status: Never smoker alcohol intake: current Assessment & Plan Post-op Postoperative Procedures: Procedures Operation Date: 12/11/22 14:45 Actual Procedure Side Surgeon p Hip Hemiarthroplasty Left Carlos Salvador MD Postoperative day: 1 Postoperative status: doing well Postoperative status narrative: Stable status post left hip hemiarthroplasty Postoperative plan narrative: -mobilize with PT. Weightbearing as tolerated with front wheel walker Or cane. Maintain posterior hip precautions x6 weeks -continue with multimodal pain management, the patient is doing very well without narcotics at this time -aspirin 81 mg b.i.d. x6 weeks for DVT prophylaxis. He will need 325 mg of aspirin the morning of his flight, was encouraged to get up and walk around and do ankle pumps to minimize the risk of blood clots - disposition: Likely today, depending on primary team -Will need to establish orthopedic care in [place]. Recommend a postoperative wound check appointment 10-14 days after surgery, followed by a postoperative x- ray at 6 weeks after surgery
[2022-12-12] MEDS: ASPIRIN EC 81 MG TABLET PO (08:05)
[2022-12-12] MEDS: DOCUSATE 100 MG CAPSULE PO (08:05)
[2022-12-12] MEDS: polyethylene glycoL 3350 17 GM POWD.PACK PO (08:05)
[2022-12-12] MEDS: ATORVASTATIN 20 MG TABLET PO (08:05)
[2022-12-12 09:06] VITALS: BP 111/54; PULSE 76; RESP 17; TEMP 37.2; O2SAT 98
--- NOTE | 2022-12-12 11:39 | PT.IIE ---
Current Diagnoses Fracture of unspecified part of neck of unspecified femur, initial encounter for closed fracture (12/10/22) Surgery Performed Operation Date: 12/11/22 14:45 Actual Procedures p Hip Hemiarthroplasty(Left) - Carlos Salvador MD Medical History (Last Reviewed 12/12/22 @ 07:58 by Vanessa Daily PA-C) Bladder cancer Physical Therapy Inpatient Evaluation/Re-Eval M1 PT/OT-IP Prior Functional Status Start: 12/12/22 11:12 Freq: NEEDED Status: Active Protocol: Document 12/12/22 11:12 ES (Rec: 12/12/22 11:39 ES [id number]) Medical Review Prior Functional Status Medical History Reviewed Yes Diet/Fluid Consistency Regular Communication WFL Mobility and Gait Indep without AD Activities of Daily Living and IADL's Indep Social History Household Members spouse Living Arrangements House Number of Floors (Floors) One Floor Number of Stairs To Enter/Railing? 4 with single rail Home Environment Standard Height Toilet,Walk in Shower Home Equipment Front Wheel Walker,Raised Toilet Seat Without Armrests, Shower Seat without Backrest, Grab Bars Near Toilet Employment Status Retired Additional Social History Comment Patient lives in [place] and was visiting his mother in [place] with his . He will be staying at his mother' s house until he is able to fly back to [place] possibly next week. M2 PT-IP Current Condition Start: 12/12/22 11:12 Freq: NEEDED Status: Active Protocol: Document 12/12/22 11:12 ES (Rec: 12/12/22 11:39 ES [id number]) Physical Therapy Current Condition Current Condition Evaluation Date 12/12/22 Treatment Diagnosis Fall with hip fx, s/p L hip hemiarthroplasty Onset Date 12/10/22 M3 PT-IP Subjective Start: 12/12/22 11:12 Freq: NEEDED Status: Active Protocol: Document 12/12/22 11:12 ES (Rec: 12/12/22 11:39 ES [id number]) Subjective Physical Therapy Visit Type Type Initial Evaluation Visit Start Time 09:00 Visit Stop Time 09:39 Total Visit Minutes 39 Physical Therapy Visit Comments Patient Comments Patient alert in bed, very agreeable to work with PT. Stated he hasn't had any pain meds since last night but not having any pain. Wanting to get out of bed and walk. present during the end of treatment. Patient stated he doesn't have much flexibility in his legs due to polio and multiple LE surgeries. Patient Goals To be able to fly back to his home in [place] as soon as possible. Therapy Pain Assessment Pain Present Pain Present Denied Pain M4 PT-IP Mobility and Gait Start: 12/12/22 11:12 Freq: NEEDED Status: Active Protocol: Document 12/12/22 11:12 ES (Rec: 12/12/22 11:39 ES [id number]) PT-Bed Mobility Assessment Supine to Sit Supine to Sit Minimal Assistance Scooting Scooting to Edge of Bed Independent PT-Transfer Assessment Sit to and From Stand Sit to and from Stand Standby Assistance Equipment Transfer Assistive Device Gait Belt,Front Wheeled Walker Transfers Transfer Destination Chair,Toilet Transfer Technique Stand Step Pivot Transfer Ability Level of Assist Standby Assistance Comments Mobility Comments Min cues for decreasing L hip flexion to comply with precautions. Cues for hand placement for safety with FWW. Gait Assessment Gait Gait Assistance Required: Standby Assistance Distance (Feet) 250 Able to Maintain Weight Bearing Status Yes During Gait Assistive Devices Assistive Device Gait Belt,Front Wheeled Walker Gait Deviations General Gait Pattern Decreased Stride Length, Decreased Feet Clearance, Flexed Trunk Factors Limiting Gait Function Factors Limiting Gait Function Decreased Strength,Limited Range of Motion Comments Gait Comments Ambulated slowly, able to comply with precautions with minimal cueing. Stair Climbing Assessment Evaluation Level of Assist On Stairs Contact Guard Assistance Devices Stair Climbing Assistive Devices Left Railing,Right Railing Technique/Endurance Stair Climbing Direction Ascend and Descend Stair Climbing Technique Step to Step Number of Steps Climbed 3 Query Text: Stair Climbing Set # Repetitions (reps) 1 Comments Stair Climbing Comments Required use of B rails due to decreased strength LLE. present to observe; educated her on ways to assist at home. PT-Balance Assessment Sitting Balance and Reactions Static Sitting Balance Ability Good Dynamic Sitting Balance Ability Good Standing Balance and Reactions Static Standing Balance Ability Good Dynamic Standing Balance Ability Good Device Used FWW M5 PT-IP Objective Assessments Start: 12/12/22 11:12 Freq: NEEDED Status: Active Protocol: Document 12/12/22 11:12 ES (Rec: 12/12/22 11:39 ES [id number]) Orientation Orientation/Cognition Level of Alertness Alert Orientation Name,Age,Birthday,Month,Date, Year,Day of Week,Place, Situation Language Function Ability No Deficits Noted Safety Awareness Understands Safety Issues Memory Description No Deficits Noted Gross Range of Motion Upper Extremity ROM Assessment Within Functional Limits Lower Extremity ROM Assessment Left Impaired Impairments 2/2 precautions and prior limitations from polio/ surgeries primarily at ankles. Strength Upper Extremity Strength Assessment Within Functional Limits Lower Extremity Strength Assessment Left Impaired Hip Grossly 3-/5 Knee WFL Ankle WFL Coordination Assessment Gross Coordination Gross Coordination WNL Sensation Assessment Sensation Gross Sensation WNL M6 PT-IP Treatment Start: 12/12/22 11:12 Freq: NEEDED Status: Active Protocol: Document 12/12/22 11:12 ES (Rec: 12/12/22 11:39 ES [id number]) Physical Therapy Treatment Exercises Exercises Ankle Pumps,Gluteal Sets,Quad Sets,Heel Slides,Supine Hip Abduction Education Education Provided Precautions,Weight Bearing Status,Post-Op Packet,Safety M7 PT-IP Assessment and Plan Start: 12/12/22 11:12 Freq: NEEDED Status: Active Protocol: Document 12/12/22 11:12 ES (Rec: 12/12/22 11:39 ES [id number]) PT Summary Assessment and Plan Potential Rehabilitation Potential Excellent Status of Condition at Evaluation Stable Summary Impairments Pain,ROM,Strength,Bed Mobility ,Transfers,Gait Assessment Summary Patient is a 72 year old s/p L hip hemiarthroplasty who presented with impaired functional mobility due to the above impairments. He had limited ankle ROM and BLE strength at baseline due to hx of polio and multiple surgeries. He required assistance with moving LLE out of bed; recommended using a strap or leg baggage and mail agent at home until able to do independently . He required B rails for stairs this visit and will need to be able to do these with single rail at home, so will need to practice again prior to d/c to make sure he is safe to get in his home. He tolerated activity without significant increase in pain. He will benefit from further PT to increase independence with mobility prior to d/c home. Goals Bed Mobility Goal Standby Assistance Transfer Goal Independent Gait Goal Independent Gait Distance 150 Other Goals Patient will be able to ascend /descend 4 stairs with single rail and LRAD with CGA using step-to pattern. Days to Meet Goals 2 Frequency of Treatment Frequency Of Treatment Twice a Day Treatment Plan Physical Therapy Treatment Plan Bed Mobility Training,Transfer Training,Gait Training, Therapeutic Exercise,Post Op Education Other Recommendations and Next Treatment Practice stairs, fit patient's Focus FWW, family training as needed. Anticipate d/c today vs tomorrow. Precautions Posterior Hip Precautions No Hip Flexion > 90 degrees,No Hip Internal Rotation,No Hip Adduction Weight Bearing Status Weight Bearing Status Weight Bear as Tolerated Recommendations To Nursing Amount of Assist Needed Standby Assistance Discharge Recommendations PT Discharge Recommendations Home with Assistance, Outpatient PT Transportation Needs at Discharge Private Vehicle
[2022-12-12] MEDS: IBUPROFEN 400 MG TABLET PO (13:20)
[2022-12-12] MEDS: OXYCODONE IR 5 MG TABLET PO (13:20)
--- NOTE | 2022-12-12 14:00 | PM.DS.1 ---
History of Present Illness History of Present Illness Date Patient Seen: 12/12/22 Time Patient Seen: 14:00 Chief complaint: Hip pain, fall Narrative: Per admitting provider, Mr. Simeon is a 72M with PMH bladder cancer s/p TURP, GERD who presents after a fall. He is in town visiting his mother. He was walking in a parking lot and tripped and fell on his back left side. He had immediate pain and was unable to walk. He had no symptoms of dizziness, or lightheadedness prior. He did not hit his head or lose consciousness. In the ED workup was done, vitals afebrile, heart rate 70s, respiratory rate 16, blood pressure 130s/70s, sats 99% on room air. Labs reviewed by me and notable for WBC 8.0, hgb 15.0, plts 255. Na 140, k 3.6, creatinine 0.74. Hip xray reviewed by me and shows left femoral neck fracture. He was ordered for pain medications and felt improved. Orthopedic surgery consulted. He was admitted for further treatment. Discharge Providers Provider Date of admission: 12/10/22 21:22 Discharge Date: 12/12/22 Consults: 12/10/22 21:22 Consult to Physician Stat Comment: Consulting Provider: Carlos Salvador Reason for consultation: hip Has provider been notified: Yes 12/11/22 16:26 Consult to Discharge Planning Routine Comment: Consult to Physical Therapy Evaluate & Treat Comment: Physician Instructions: post op SIVA protocol Discharge provider: Josué Deshpande DO Summary Hospital Course Discharge Diagnosis: 1. Acute left hip fracture, pathologic secondary to osteoporosis given ground level fall. 2. History of bladder cancer 3. GERD 4. HLD Hospital Course: This is a 72 year old male with PMH of bladder cancer, GERD, HLD from [place] admitted with a left hip fracture. He underwent left hemiarthroplasty with orthopedic surgery. He had an uncomplicated post operative course, and did well the following day with physical therapy. He was able to be discharged on the afternoon of POD#1. He will follow up with his orthopedic physician in [place]. No changes are recommended other than 6 weeks of 81 mg aspirin twice daily for DVT prevention per orthopedic surgery and as needed oxycodone for pain control. Time Spent with Patient Time spent: Less than 30 minutes Exam Vital Signs (past 8 hours): - 04/20/23 07:32 12/12/22 09:06 Temperature 98.9 F Pulse Rate 76 Respiratory Rate 17 Blood Pressure 111/54 L Pulse Oximetry 97 98 Oxygen Delivery Method Room Air Oxygen Flow Rate 0 0 Oxygen Delivery Method Room Air Oxygen Flow Rate 0 Narrative Exam Narrative: GEN: no acute distress EXT: warm and well perfused, no edema NEURO: awake, alert, oriented, no focal deficits Objective Labs 12/12/22 04:50 12/11/22 04:40 Labs: Laboratory Results - last 24 hr 12/12/22 04:50 Hgb 12.4 L Hct 36.3 L PFSH Medical History Bladder cancer Social History household members: spouse Smoking Status: Never smoker alcohol intake: current Discharge Plan Discharge Plan Patient Disposition: Home Provider Discharge Comment: You were admitted with a hip fracture, and had surgery to repair this with orthopedics. You did well after surgery, and were able to be discharged home the next day. Discharge orders & Medications Prescriptions: New aspirin 81 mg Tablet,Delayed Release (Dr/Ec) 81 mg PO BID Qty: 90 0RF oxycodone 5 mg Tablet 5 mg PO Q3H PRN (Reason: Pain, Moderate (4-6)) 7 Days Qty: 30 0RF Continued esomeprazole magnesium 40 mg capsule,delayed release(DR/EC) 40 mg PO QAM atorvastatin 20 mg tablet 20 mg PO DAILY Diet/Activity/Treatments Diet: Diet as Tolerated Activity: As tolerated, see restrictions below Other treatments: Medications: -Aspirin 81mg twice daily x6 weeks to prevent blood clots. Please take Aspirin 325mg the morning of flying home (Aspirin 81mg x 4 tablets ok), then resume evening dose of 81mg aspirin. please also do ankle pumps and walk around as much as possible, to minimize the risk of blood clots. -OTC Tylenol 500 mg 1 tablet every 4 hours as needed for pain/fever. Max 6 tablets per day. -Ibuprofen 400 mg 1 tablet every 4 hours as needed for pain/inflammation. Max 2,400 mg per day. -As needed medications: -Ducolax and /or MiraLax as needed for constipation from narcotic pain medications. -Pepcid AC as needed for stomach upset (usually from aspirin or ibuprofen). Dressing/Wound care: -Keep Aquacell dressing in place until postoperative follow-up office visit. -Okay to shower. Keep wound out of direct water stream. No soaking or submerging until all the scabs fall off (approximately 6 weeks). -No lotions, ointments, or scar creams directly to the incision until the wound is healed (4-6 weeks), -Please call the office if dressing becomes wet, soiled, or saturated. Activities: -Maintain posterior hip precautions x6 weeks. -Walk frequently: approximately 5-10 minutes every hour. -Weight-bearing as tolerated. Use front wheeled walker, and progress to cane when safe. -Continue with home exercises as directed by your physical therapist. -Elevate ?toes above the nose if you have significant swelling in your lower leg. (A wedge pillow is easiest.) -Ice your incision as needed for pain/inflammation/swelling. Protect your skin with a folded pillowcase. Follow-up: - Please establish care with an orthopedic surgeon for her postoperative visit, usually 10-14 days after surgery for wound check, and then at 6 weeks for a postoperative x-ray. Call the office if you have chest pain, shortness of breath, significant swelling that will not resolve with elevating, fever over 101?, significantly worsening pain, or are concerned you might need to go to the Emergency Room. [facility]: [phone] Skin/Wound/Dressing Care Report to your healthcare provider any signs of infection, such as:: chills, fever, night sweats, unusual drainage and unusual redness Visit Report/Discharge Packet Instructions: DI for Hip Replacement Stand Alone Forms: Patient Portal/API, Stroke Signs & Symptoms, Surgery Discharge
--- NOTE | 2022-12-12 14:14 | PT.IPTN ---
Current Diagnoses Fracture of unspecified part of neck of unspecified femur, initial encounter for closed fracture (12/10/22) Surgery Performed Operation Date: 12/11/22 14:45 Actual Procedures p Hip Hemiarthroplasty(Left) - Carlos Salvador MD Physical Therapy Treatment Note M2 PT-IP Current Condition Start: 12/12/22 11:12 Freq: NEEDED Status: Active Protocol: Document 12/12/22 11:12 ES (Rec: 12/12/22 11:39 ES [id number]) Physical Therapy Current Condition Current Condition Evaluation Date 12/12/22 Treatment Diagnosis Fall with hip fx, s/p L hip hemiarthroplasty Onset Date 12/10/22 M3 PT-IP Subjective Start: 12/12/22 11:12 Freq: NEEDED Status: Active Protocol: Document 12/12/22 14:05 ES (Rec: 12/12/22 14:14 ES [id number]) Subjective Physical Therapy Visit Type Type Treatment Note Visit Start Time 12:54 Visit Stop Time 13:17 Total Visit Minutes 23 Physical Therapy Visit Comments Patient Comments Patient alert, up in chair. Reported feeling stiff from not moving for a while. Agreeable to work with PT. present at end of treatment and brought FWW. Stated she wasn't able to find a leg plugman or box sealing machine operator but will look on [employer]. Patient Goals To be able to fly back to his home in [place] as soon as possible. Therapy Pain Assessment Pain Present Pain Present Pain Reported Location left hip Description Aching Pain Management Techniques Apply Cold,Elevation,Re- positioning M4 PT-IP Mobility and Gait Start: 12/12/22 11:12 Freq: NEEDED Status: Active Protocol: Document 12/12/22 14:05 ES (Rec: 12/12/22 14:14 ES [id number]) PT-Bed Mobility Assessment Sit to Supine Sit to Supine Standby Assistance PT-Transfer Assessment Sit to and From Stand Sit to and from Stand Independent Equipment Transfer Assistive Device Gait Belt,Front Wheeled Walker Transfers Transfer Destination Bed,Toilet Transfer Technique Stand Step Pivot Transfer Ability Level of Assist Independent Comments Mobility Comments No cues for hip precautions needed. Gait Assessment Gait Gait Assistance Required: Independent Distance (Feet) 100 Able to Maintain Weight Bearing Status Yes During Gait Assistive Devices Assistive Device Gait Belt,Front Wheeled Walker Gait Deviations General Gait Pattern Decreased Stride Length, Decreased Feet Clearance, Flexed Trunk Factors Limiting Gait Function Factors Limiting Gait Function Decreased Strength,Limited Range of Motion,Pain Comments Gait Comments Improved mack this visit. Stair Climbing Assessment Evaluation Level of Assist On Stairs Standby Assistance Devices Stair Climbing Assistive Devices Left Railing Technique/Endurance Stair Climbing Direction Ascend and Descend Stair Climbing Technique Step to Step Number of Steps Climbed 3 Stair Climbing Set # Repetitions (reps) 1 Comments Stair Climbing Comments Instructed in sidestepping with single rail for BUE support. M5 PT-IP Objective Assessments Start: 12/12/22 11:12 Freq: NEEDED Status: Active Protocol: Document 12/12/22 14:05 ES (Rec: 12/12/22 14:14 ES [id number]) Orientation Orientation/Cognition Level of Alertness Alert Orientation Name,Age,Birthday,Month,Date, Year,Day of Week,Place, Situation Language Function Ability No Deficits Noted Safety Awareness Understands Safety Issues Memory Description No Deficits Noted M6 PT-IP Treatment Start: 12/12/22 11:12 Freq: NEEDED Status: Active Protocol: Document 12/12/22 14:05 ES (Rec: 12/12/22 14:14 ES [id number]) Physical Therapy Treatment Education Education Provided Precautions,Safety M7 PT-IP Assessment and Plan Start: 12/12/22 11:12 Freq: NEEDED Status: Active Protocol: Document 12/12/22 14:05 ES (Rec: 12/12/22 14:14 ES [id number]) PT Summary Assessment and Plan Potential Rehabilitation Potential Excellent Status of Condition at Evaluation Stable Summary Impairments Pain,ROM,Strength,Bed Mobility ,Transfers,Gait Progress Towards Goals Safe For Discharge,Goals Met Assessment Summary Patient demonstrated improved gait pattern and mack, and was able to ascend/descend stairs safely with single rail using sidestepping technique. Patient c/o increased pain this visit but had declined meds prior to visit. RN notified at end of treatment of increased pain. Patient has met all goals for d/c and is safe to return to his mother's house with family assistance. Frequency of Treatment Frequency Of Treatment Twice a Day Treatment Plan Physical Therapy Treatment Plan Bed Mobility Training,Transfer Training,Gait Training, Therapeutic Exercise,Post Op Education Other Recommendations and Next Treatment Anticipate d/c this afternoon. Focus Precautions Posterior Hip Precautions No Hip Flexion > 90 degrees,No Hip Internal Rotation,No Hip Adduction Weight Bearing Status Weight Bearing Status Weight Bear as Tolerated Recommendations To Nursing Amount of Assist Needed Standby Assistance Discharge Recommendations PT Discharge Recommendations Home with Assistance, Outpatient PT Transportation Needs at Discharge Private Vehicle
== END 2022-12-12 14:49 | disposition home or self-care (01) | DRG 522 ==
LOC: ED 21:22 → AC 21:23
PROVIDERS: Orthopaedic Surgery; Admitting Provider Internal Medicine; Emergency Provider Emergency Medicine; Referring Provider Emergency Medicine; Visit Provider Internal Medicine
PROC: 0SRS0JZ Replacement of Left Hip Joint, Femoral Surface with Synthetic Substitute, Open Approach (ICD-10-PCS; CPT 27125; principal; 2022-12-11 14:45)
DX: M80.052A Age-related osteoporosis with current pathological fracture, left femur, initial encounter for fracture (principal); K21.9 Gastro-esophageal reflux disease without esophagitis; E78.5 Hyperlipidemia, unspecified; Z20.822 Contact with and (suspected) exposure to COVID-19
CPT/HCPCS: 36415; 72170; 73502; 80048; 80053; 83880; 85014; 85018; 85025; 87635; 96374; 96376; 97110; 97116; 97161; 97530; 99284; C1776; C9803; J0171; J0330; J0690; J1100; J1170; J2405; J2704; J3010